=== PATIENT | female | born 2000 | race Caucasian/White ===

== ENCOUNTER 2020-09-17 10:12 | Emergency (ER) | payer BC, SELFPAY ==
[2020-09-17 10:25] VITALS: BP 138/79; PULSE 99; RESP 20; TEMP 37; O2SAT 100
--- NOTE | 2020-09-17 10:29 | ED.URI ---
HPI - URI/Sore Throat General Chief Complaint: Upper Respiratory Infection Stated Complaint: SOLIZ cough achey and tired Time Seen by Provider: 09/17/20 10:29 Source: patient Mode of arrival: ambulatory History of Present Illness HPI Narrative: patient presents with fever, body aches, nausea and fatigue. patient also complains of sore throat. no drooling and no problem swallowing. Patient states she had a negative covid test 5 days ago. Patient states her symptoms have been present for 10 days. Related Data Home Medications Medication Instructions Recorded Confirmed Control 09/17/20 Allergies Allergy/AdvReac Type Severity Reaction Status Date / Time No Known Allergies Allergy Verified 09/17/20 10:36 Review of Systems Review of Systems: Narrative: CONSTITUTIONAL: Denies chills, or sweats. Reports fever and generalized body aches EYES: Denies visual changes, redness, or discharge. ENT: Denies otalgia. Reports nasal congestion runny nose and sore throat CARDIOVASCULAR: Denies chest pain, palpitations, or edema. RESPIRATORY: Denies dyspnea. Reports occasional cough GASTROINTESTINAL: Denies abdominal pain, nausea, vomiting, or diarrhea. GENITOURINARY: Denies dysuria or hematuria. SKIN: Denies rash or itching. MUSCULOSKELETAL: Denies back pain, joint pain, or myalgia. Reports generalized body aches NEUROLOGIC: Denies headache, numbness, or weakness. PSYCHIATRIC: Denies anxiety or depression. [facility] Past Medical History Medical History (Updated 09/17/20 @ 11:01 by KINGSLEY Mendez) Pharyngitis Comments At time of signature, agree with nursing past medical, surgical, social and family history. There is no relevant family history pertinent to the presenting complaint Exam Narrative: Exam Narrative: The patient is a well-developed, well-nourished in no acute distress. SKIN: Skin is warm and dry without erythema, swelling or exudate. There is good turgor. No tenting. HEAD: Atraumatic. Normocephalic. No temporal or scalp tenderness. EYES: Moist and bright. Sclera and conjunctivae normal. No discharge. PERRLA. Extraocular motions intact. Gross visual acuity intact. EARS: Pinna is normal shape and contour. Clear external auditory canals. TM pearly samuels with good cone of light, no erythema or suppuration. Bilateral cerumen noted no gross hearing deficit. NOSE: pink, moist mucosa with good air movement. Clear rhinorrhea without nasal flaring. Septum midline. Mouth: moist mucous membranes. THROAT; mild erythema noted to posterior oropharynx with moderate postnasal drainage. Without exudate or ulceration.. Uvula midline. Normal movement of soft palate. NECK: Supple and nontender with full range of motion without discomfort. No meningeal signs. LUNGS: Equal and bilateral breath sounds without wheezes, rales or rhonchi. CHEST: The chest wall is without retractions or use of accessory muscles. HEART: Has a regular rate and rhythm without murmur, gallops, click or rub. ABDOMEN: Soft, nontender with positive active bowel sounds. No rebound tenderness. EXTREMITIES: Without cyanosis, clubbing or edema. Equal 2+ distal pulses and 2 second capillary refill noted. NEUROLOGIC: alert, active, . The patient moves all extremities with normal muscle strength. Normal muscle tone is noted. Normal coordination is noted. NO focal neurological findings noted. Course Vital Signs Vital signs: Vital Signs Temperature 37.0 C 09/17/20 10:25 Pulse Rate 99 09/17/20 10:25 Respiratory Rate 09/17/20 10:25 Blood Pressure 138/79 09/17/20 10:25 Pulse Oximetry 100 09/17/20 10:25 Temperature 37.0 C 09/17/20 10:25 Pulse Rate 99 09/17/20 10:25 Respiratory Rate 20 09/17/20 10:25 Blood Pressure 138/79 09/17/20 10:25 Pulse Oximetry 100 09/17/20 10:25 Please SAIRA schedule a followup visit with your personal physician for further evaluation and treatment. Including recheck and discussion of your blood pressure.
== END 2020-09-17 11:00 | disposition home or self-care (01) ==
PROVIDERS: Emergency Provider Nurse Practitioner Family
DX: J02.9 Acute pharyngitis, unspecified (principal); J06.9 Acute upper respiratory infection, unspecified; R50.9 Fever, unspecified; R53.83 Other fatigue; R52 Pain, unspecified; R09.89 Other specified symptoms and signs involving the circulatory and respiratory systems; Z20.828 Contact with and (suspected) exposure to other viral communicable diseases
CPT/HCPCS: 87081; 87804; 87880; 99213; G0463

== ENCOUNTER 2023-10-09 09:43 | Emergency (ER) | payer BC, OTHER, SELFPAY ==
[2023-10-09 09:53] VITALS: BP 128/74; PULSE 107; RESP 16; TEMP 35.9; O2SAT 98
--- NOTE | 2023-10-09 10:18 | ED.URI ---
HPI - URI/Sore Throat General Chief Complaint: Upper Respiratory Infection Stated Complaint: Cough/Sore Throat Time Seen by Provider: 10/09/23 10:18 Source: patient, RN notes reviewed and old records reviewed Mode of arrival: ambulatory Limitations: no limitations History of Present Illness HPI Narrative: 23 year old female who presents to [facility] care with complaints of cough on Wednesday and sore throat on with no known fevers. Patient recently had bottom bilateral wisdom teeth removed on the and is completing oral antibiotics, Patient reports that she has had some headaches and body aches. she has been taking Ibuprofen and Tylenol for her symptoms. MD elicited complaint: cough, sore throat, rhinorrhea, nasal congestion and other (headache, body aches) Onset (ago): day(s) (4--5 days) Able to tolerate fluids by mouth: Yes Treatments prior to arrival: acetaminophen, ibuprofen and other (on Amoxicillin) Related Data Home Medications Medication Instructions Recorded Confirmed amoxicillin 500 mg capsule 500 mg PO TID 10/09/23 10/09/23 Allergies Allergy/AdvReac Type Severity Reaction Status Date / Time No Known Allergies Allergy Verified 10/09/23 10:12 Review of Systems Review of Systems: CONSTITUTIONAL: Denies malaise, chills, sweats, or fever. EYES: Denies visual changes, redness, or discharge. ENT: Reports rhinorrhea, congestion,no sinus pain,no otalgia and positive for sore throat. CARDIOVASCULAR: Denies chest pain, palpitations, or edema. RESPIRATORY: Reports cough.? Denies dyspnea. GASTROINTESTINAL: Denies abdominal pain, nausea, vomiting, diarrhea SKIN: Denies rash or itching. MUSCULOSKELETAL: Reports myalgia. NEUROLOGIC: reports headache. 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 There is no relevant family history pertinent to the presenting complaint Exam Narrative: GENERAL: Well-appearing, well-nourished, and in no acute distress. HEAD: Normocephalic EYES: PERRLA, conjunctivae clear ENT: Nares clear, turbinates edematous and erythematous, clear discharge. Mucous membranes moist. TM pearly sutton with dull light reflex bilaterally; no tragal tenderness. Oropharynx erythematous without lesions. Tonsils not enlarged and without exudate, no drooling, no hoarseness, no trismus, uvula midline.post nasal drainage. NECK: Supple. No lymphadenopathy CHEST: scattered wheezes, breath sounds equal. Positive wheezing, no rhonchi, rales, or stridor. No respiratory distress, speaks in full sentences cough .SAO2 98% on room air HEART: Regular rate and rhythm. No murmur heard. SKIN: Warm, dry, no rash. NEURO: Alert and oriented x3. PSYCH: Normal mood and affect Course Course Emergency Course: Patient is aware of diagnosis, understands and agrees to treatment plan.? Anticipatory guidance given.? Patient agrees to follow-up as directed and is aware of reasons to seek care at the emergency department. Portions of this record may have been created with voice recognition software Level of Care: Express Care Visit Vital Signs Vital signs: Vital Signs Temperature 35.9 C L 10/09/23 09:53 Pulse Rate 107 H 10/09/23 09:53 Respirator
== END 2023-10-09 10:55 | disposition home or self-care (01) ==
PROVIDERS: Emergency Provider Registered Nurse; PCP Hospitalist
DX: J06.9 Acute upper respiratory infection, unspecified (principal); R05.9 Cough, unspecified; Z20.822 Contact with and (suspected) exposure to COVID-19
CPT/HCPCS: 87426; 87804; 99203; C9803; G0463